=== PATIENT | female | born 2000 | race Caucasian/White ===

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

== ENCOUNTER → 2020-06-28 10:16 | Outpatient (CLI) | payer OTHER, SELFPAY ==
[2020-06-28 09:33] VITALS: BMI 27.0
[2020-06-28 12:04] LABS: Basophil# 0.03 X10^3/uL; Basophil% 0.5 % (0-1); Eosinophil# 0.17 X10^3/uL; Eosinophils% 2.8 % (0-5); Hematocrit 46.3 % (37-47); Hemoglobin 15.4 g/dL (12.0-15.0); Lymphocyte % 22.8 % (19-41); Mean Corp Hgb Conc 33.3 g/dL (32-36); Mean Corpuscular Hgb 31.5 pg (27.0-32.0); Mean Corpuscular Volume 94.7 fL (81-99); Mean Platelet Vol. 11.9 fl (6.2-12.0); Monocyte# 0.47 X10^3/uL; Monocyte% 7.7 % (0-10); NRBC Flagged by Analyzer 0 % (0-5); Neutrophil # 4.04 X10^3/uL (2.7-7.7); Neutrophil % 65.9 % (47-70); Platelet Count 234 K/mm3 (150-450); RBC Distribution Width CV 11.5 % (11.6-14.6); RBC Distribution Width SD 39.9 fl (35.1-43.9); Red Blood Count 4.89 M/mm3 (4.2-5.4); White Blood Count 6.1 K/mm3 (4.4-11.0)
[2020-06-28 12:28] LABS: Vitamin B12 270 pg/mL (211-911)
[2020-06-28 12:31] LABS: AST(SGOT) 200 U/L (15-37); Alanine Aminotransfer ALT/SGPT 61 U/L (13-56); Alkaline Phosphatase 90 U/L (45-117); Anion Gap 4 (5-15); BUN 12 mg/dL (7-18); BUN/Creat Ratio 16.4 RATIO (10-20); Calcium,Total 9.1 mg/dL (8.5-10.1); Chloride 103 mmol/L (98-107); Creatinine, Serum 0.73 mg/dL (0.55-1.02); EST Glomerular Filtration Rate 106 mL/min (>60); Est Glom Filt Rate - Afr Amer 129 mL/min (>60); Globulin 3.9 g/dL (2.2-4.2); Glucose 90 mg/dL (74-106); Potassium 4.5 mmol/L (3.5-5.1); Protein, Total 7.9 g/dL (6.4-8.2); Sodium Level 136 mmol/L (136-145); T4 Free Direct 0.84 ng/dL (0.76-1.46); Thyroid Stim Hormone (TSH) 1.15 uIU/mL (0.358-3.74)
[2020-06-29 08:08] LABS: HEPATITIS B SURFACE AG Negative (Negative); Hepatitis A AB, Total Negative (Negative); Hepatitis A IgM Antibody Negative (Negative); Hepatitis B Core AB IgM Negative (Negative); Hepatitis B Core Ab Total Negative (Negative); Hepatitis C Ab <0.1 s/co ratio (0.0-0.9)
[2020-06-29 09:39] LABS: Hep B Surface Antibodies Non Reactive (.)
== END ==
LOC: BIMLAB 10:17
PROVIDERS: PCP Internal Medicine; Referring Provider Internal Medicine; Visit Provider Internal Medicine
DX: F32.9 Major depressive disorder, single episode, unspecified (principal); F41.9 Anxiety disorder, unspecified; R74.8 Abnormal levels of other serum enzymes
CPT/HCPCS: 36415; 80053; 82607; 84439; 84443; 85025; 86704; 86705; 86706; 86708; 86709; 86803; 87340

== ENCOUNTER 2020-08-02 15:53 | Outpatient (RCR) | payer OTHER, SELFPAY ==
[2020-07-26 09:40] VITALS: BMI 25.7
== END 2020-10-03 23:59 ==
LOC: IMMUN 15:53
PROVIDERS: PCP Internal Medicine; Referring Provider Family Medicine; Visit Provider Family Medicine
DX: Z23 Encounter for immunization (principal)
CPT/HCPCS: 0001A; 0002A; 91300

== ENCOUNTER → 2020-08-23 11:15 | Outpatient (CLI) | payer OTHER, SELFPAY ==
[2020-07-26 09:40] VITALS: BMI 25.7
[2020-08-23 15:37] LABS: AST(SGOT) 15 U/L (15-37); Alanine Aminotransfer ALT/SGPT 18 U/L (13-56); Albumin, Serum 4.1 g/dL (3.2-5.0); Alkaline Phosphatase 91 U/L (45-117); Bilirubin, Direct 0.19 mg/dL (0.00-0.30); CRP < 2.90 mg/L (0.0-3.0); GGTP 9 U/L (5-55); Globulin 3.6 g/dL (2.2-4.2); Protein, Total 7.7 g/dL (6.4-8.2)
[2020-08-25 20:08] LABS: Endomysial Antibody IgA Negative (Negative); Immunoglobulin A 138 mg/dL (87-352)
[2020-08-25 20:25] LABS: ANTINUCLEAR ANTIBODIES DIRECT Negative (Negative); Anti-Mitochondrial AB <20.0 Units (0.0-20.0); Anti-Smooth Muscle ABS 4 Units (0-19); t-Transglutaminase IgA <2 U/mL (0-3)
== END ==
PROVIDERS: PCP Internal Medicine; Referring Provider Internal Medicine Gastroenterology; Visit Provider Internal Medicine Gastroenterology
DX: K75.9 Inflammatory liver disease, unspecified (principal)
CPT/HCPCS: 36415; 80076; 82784; 82977; 83516; 86038; 86140; 86255

== ENCOUNTER → 2020-09-08 16:11 | Outpatient (CLI) | payer OTHER, SELFPAY ==
[2020-07-26 09:40] VITALS: BMI 25.7
--- NOTE | 2020-09-08 08:35 | RAD_ITS ---
STUDY: COLONIC TRANSIT STUDY REASON FOR EXAM: Female, 20 years old. Constipation x 1 year RADIATION DOSAGE (If Supplied By Facility): CTDIvol = ( ) mGy, DLP = ( ) mGycm. Individualized dose optimization techniques were used for this CT.? TECHNIQUE: 2 cnc laser operator films were obtained on 09/08/2020. Patient then ingested pills to check for colonic transit, then a film was obtained on 09/12/2020. COMPARISON: CT scan from 10/20/2014 FINDINGS: Nnps films show retained stool throughout the majority of the colon. There is no free air or suspicious mass or other abnormality. Bony structures are unremarkable. There is a density likely within the mid ascending colon which may represent ingested medication. The post ingestion 5 days study no longer shows significant retained stool in the colon. There are no markers from the colonic transit study present. No free air or acute abnormality noted. RAD/Colonic Trans GI/w Mul Image IMPRESSION: No remaining markers are identified on the 5 day postingestion colonic transit study Electronically Signed: Fadi Gao MD at 10:11 EDT , Service support ,
== END ==
PROVIDERS: PCP Internal Medicine; Referring Provider Internal Medicine Gastroenterology; Visit Provider Internal Medicine Gastroenterology
DX: K59.09 Other constipation (principal)
CPT/HCPCS: 74240; 74248

== ENCOUNTER → 2020-09-12 08:16 | Outpatient (CLI) | payer OTHER, SELFPAY ==
[2020-07-26 09:40] VITALS: BMI 25.7
== END ==
PROVIDERS: PCP Internal Medicine; Referring Provider Internal Medicine Gastroenterology; Visit Provider Internal Medicine Gastroenterology
DX: R69 Illness, unspecified (principal)

== ENCOUNTER 2020-12-01 09:35 | Emergency (ER) | payer OTHER, SELFPAY ==
[2020-07-26 09:40] VITALS: BMI 25.7
[2020-12-01 09:36] VITALS: BP 121/86; PULSE 82; RESP 16; TEMP 36.4; O2SAT 100; BMI 24.5
--- NOTE | 2020-12-01 10:14 | CT_ITS ---
EXAM DESCRIPTION: CT head CLINICAL HISTORY: 20 years Female, HEADACHE COMPARISON: None. TECHNIQUE: A CT scan of the head was performed without IV contrast in the axial plane. Coronal and sagittal reconstruction images were also obtained. This exam was performed according to our departmental dose-optimization program, which includes automated exposure control, adjustment of the mA and/or kV according to patient size and/or use of iterative reconstruction technique. FINDINGS: The melony, medulla, and cerebellum appear to be normal. The ventricles and sulci are normal in size and shape. The basal ganglia appear to be normal. The inner and outer tables of the skull are intact. The frontal, ethmoid, maxillary, and sphenoid sinuses are normal. The mastoid air cells are normal. CT/Brain/Head without Contrast IMPRESSION: Normal CT scan of the head. Electronically Signed: Dereck Pond DO at 11:30 EDT Tel , Service support ,
--- NOTE | 2020-12-01 10:15 | EKG12_ITS ---
Test Reason : Blood Pressure : / mmHG Vent. Rate : 057 BPM Atrial Rate : 057 BPM P-R Int : 148 ms QRS Dur : 088 ms QT Int : 430 ms P-R-T Axes : 037 082 040 degrees QTc Int : 418 ms Sinus bradycardia with sinus arrhythmia Otherwise normal ECG Confirmed by QUIN LIMA, ZION ([id number]), editorial director JULIO ALBARRAN ([id number]) on 12/05/2020 8:53:10 AM Referred By: OSCAR Confirmed By:ZION TSAI MD
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
[2020-12-01 10:44] LABS: Absolute Lymphocyte Count 1.36 X10^3/uL (0.83-4.51); Absolute Neutrophil Count 2.5 X10^3/uL (2.0-7.7); Basophil# 0.02 X10^3/uL; Basophil% 0.5 % (0-1); Eosinophil# 0.17 X10^3/uL; Eosinophils% 3.9 % (0-5); Hemoglobin 14.5 g/dL (12.0-15.0); Lymphocyte # 1.36 X10^3/ul (0.83-4.51); Lymphocyte % 30.9 % (19-41); Mean Corpuscular Hgb 30.8 pg (27.0-32.0); Mean Corpuscular Volume 93.4 fL (81-99); Mean Platelet Vol. 11.1 fl (6.2-12.0); Monocyte# 0.38 X10^3/uL; Monocyte% 8.6 % (0-10); NRBC Flagged by Analyzer 0 % (0-5); Neutrophil # 2.46 X10^3/uL (2.7-7.7); Neutrophil % 55.9 % (47-70); Platelet Count 262 K/mm3 (150-450); RBC Distribution Width CV 11.4 % (11.6-14.6); RBC Distribution Width SD 39.5 fl (35.1-43.9); Red Blood Count 4.71 M/mm3 (4.2-5.4); White Blood Count 4.4 K/mm3 (4.4-11.0)
[2020-12-01 10:53] LABS: Internal QC Validated? YES +Cl - CLEAR BKGD; Pregnancy, Serum, hCG Quali. NEGATIVE Negative
[2020-12-01 10:58] LABS: Anion Gap 5 (5-15); BUN 15 mg/dL (7-18); Calcium,Total 9.4 mg/dL (8.5-10.1); Chloride 107 mmol/L (98-107); Creatinine, Serum 0.79 mg/dL (0.55-1.02); EST Glomerular Filtration Rate 97 mL/min (>60); Est Glom Filt Rate - Afr Amer 118 mL/min (>60); Estimated Creatinine Clearance 117.72 ml/min; Glucose 101 mg/dL (74-106); Potassium 4.3 mmol/L (3.5-5.1); Sodium Level 138 mmol/L (136-145)
[2020-12-01 11:35] VITALS: RESP 16
== END 2020-12-01 12:25 | disposition home or self-care (01) ==
PROVIDERS: Emergency Provider Emergency Medicine; PCP Internal Medicine
DX: R40.4 Transient alteration of awareness (principal); R51.9 Headache, unspecified
CPT/HCPCS: 70450; 80048; 84703; 85025; 93005; 99282

== ENCOUNTER 2021-04-15 08:52 | Emergency (ER) | payer OTHER, SELFPAY ==
[2021-04-15 08:53] VITALS: BP 123/83; PULSE 102; RESP 16; TEMP 36.2; O2SAT 98; BMI 25.2
--- NOTE | 2021-04-15 09:03 | EDS_ITS ---
HPI History of Present Illness Chief Complaint: Rash Informant: patient Onset/Context/Timing Onset: Yesterday Context: Gradual Onset Timing: Continuous Quality: Itching, burning Location: Generalized Worsened by: Nothing Relieved by: Nothing Narrative Narrative: Patient presents with hives that began last night. Patient states she ate a cheeseburger and Portuguese fries last night and noticed hives starting approximately 1 hour after that. Patient states that the fryer was changed prior to her eating the Portuguese fries last night. Patient is unsure if the fryer oil was changed to a new fryer oil. Patient states it started in her armpits and has spread to her arms, chest, back, lower extremities, face, and ears. Patient states she has some itching and burning in her ears. Patient denies any new soaps, laundry detergents, fabric softeners, or shampoos. Patient denies any difficulty breathing or difficulty swallowing. Patient states she took some Benadryl last night but does not think it helped much. [facility] Medical History (Updated 04/15/21 @ 09:[address] Carlos Hughes DO) Crohn's disease IBS (irritable bowel syndrome) Home Medications prednisone 60 mg PO DAILY #15 tablet 04/15/21 [Rx Last Taken Unknown] Allergy/AdvReac Type Severity Reaction Status Date / Time No Known Allergies Allergy Verified 04/15/21 08:53 Family History Other Diabetes Lupus Surgical History History of tonsillectomy Social History Smoking Status: Never smoker alcohol intake: never substance use type: does not use what type of physical activity do you participate in: running and weight training frequency: 5-6 times per week ROS ROS ED Constitutional Constitutional ED: Denies chills or fever(s) Eyes Eyes: Denies blurry vision or change in vision ENT ENT ED: Denies rhinorrhea or sore throat Cardiovascular Cardiovascular: Denies chest pain or palpitations Respiratory/Chest Respiratory/Chest: Denies cough or dyspnea Gastrointestinal Gastrointestinal: Denies nausea or vomiting Genitourinary Genitourinary ED: Denies dysuria or hematuria Musculoskeletal Musculoskeletal: Reports back pain; Denies neck pain Integumentary Reports rash; Denies abscess Neurologic Neurologic: Denies headache(s) or weakness Allergic/Immunologic Allergic/Immunologic ED: Reports urticaria; Denies mouth swelling EXAM Physical Exam Const Vital Signs: 04/15/21 08:53 Temperature 97.1 F L Temperature Source Temporal Pulse Rate 102 H Respiratory Rate 16 Blood Pressure 123/83 H Blood Pressure Mean 96 Pulse Ox 98 Oxygen Delivery Method Room Air Positive well nourished and well developed General Appearance ED: well developed HEENT Reports moist mucous membranes HEENT Narrative: Oropharynx is clear. Airway is patent. There is no edema of the oral airway. Neck supple and no JVD Resp normal respiratory effort and clear to auscultation bilaterally Cardio regular rate, regular rhythm and no murmurs GI normal to inspection, nondistended, normoactive bowel sounds and non-tender Palpation: soft Extremity normal to inspection General Extremety ED: Negative for edema or tenderness General Extremity: Negative for edema Neuro oriented x3, CN's II-XII intact bilaterally and no sensory deficits noted Sensorium / Orientation: alert Motor Exam: strength 5/5 throughout Psych mental status grossly normal Skin Rashes: rashes noted Urticaria patch Generalized random and scattered erythematous dry smooth and sharp hives MDM MDM MDM Narrative Medical decision making narrative: Patient was given a dose of Benadryl, prednisone, and Pepcid here. Patient feels better on reevaluation. Patient's hives are starting to improve. Patient was given a prescription for prednisone. Patient was instructed use [id number] Benadryl and Pepcid as needed. Patient was instructed to follow-up with her primary care physician in 5 to 7 days. Patient and mother understood and were agreeable with the plan. All questions were answered. Discharge Plan Triage Chief Complaint: Rash ED Provider: Carlos Hughes Dx/Rx/DC Orders Clinical Impression: Urticaria Instructions: ED Hives (Adult) Prescriptions: New prednisone 20 MG tablet 60 mg PO DAILY Qty: 15 RF: 0 Primary Care Provider: Joel Sánchez Referrals: Joel Sánchez MD [Primary Care Provider] - 3-5 Days Disposition Disposition: Home, Self Care
[2021-04-15] MEDS: Famotidine 20 MG Tablet PO (09:11)
[2021-04-15] MEDS: predniSONE 20 MG Tablet 60 MG PO (09:11)
[2021-04-15] MEDS: DiphenhydrAMINE 25 MG Capsule PO (09:11)
[2021-04-15 10:24] VITALS: BP 108/76; PULSE 82; RESP 15; O2SAT 99
== END 2021-04-15 10:25 | disposition home or self-care (01) ==
LOC: ED 09:22
PROVIDERS: Emergency Provider Emergency Medicine; PCP Internal Medicine
DX: L50.9 Urticaria, unspecified (principal)
CPT/HCPCS: 99283